=== PATIENT | male | born 1945 | race Caucasian/White ===

== ENCOUNTER 2019-09-16 19:45 | Emergency (ER) | payer MEDICARE, BC ==
[2019-09-16] MEDS ORDERED: Sodium Chloride 0.9% 10 ML Syringe FLUSH PRN ×2 (19:54→20:01)
[2019-09-16] MEDS ORDERED: Sodium Chloride 0.9% 1,000 ML IV SCH (20:00)
[2019-09-16] MEDS ORDERED: Iopamidol 612 MG/ML 100 ML Bottle IVPUSH ONE (20:01)
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
--- NOTE | 2019-09-16 20:43 | CT ---
CT cervical spine Technique: Multiple axial sections were obtained at the bottom of T1. Reconstructed sagittal and coronal images were reviewed. Comparison: No prior cervical spine imaging is available. Findings: Prominent degenerative change is noted within the apophyseal joints at C1 and C2 most severe on the left side. Diffuse disc space narrowing throughout the cervical spine is seen most severe at C6-7. Mild spondylolisthesis is noted at C3-4 and C4-5 compatible with degenerative apophyseal change. Severe left-sided neural foraminal stenosis is noted at C3-4 with moderate right-sided neural foraminal. Severe left-sided neural foraminal stenosis is noted at C4-5 with moderate right-sided neural foraminal stenosis at C4-5. Severe right-sided neural foraminal stenosis noted at C5-6. Fracture is noted noted within the lamina on the left side at C5. Fractures are seen within the lamina on both sides at C6. At C7 there is a fracture within the apophyseal joint involving the superior facet at C7 pedicle fracture noted on the left side at C7. There is slight subluxation of the apophyseal joint at C6-7 on the right side. No additional fracture is appreciated. Degenerative change is noted between the dens and anterior arch of C1. No definite additional fracture is seen. Impression: 1. Fractures at the 3 levels as described above. Diagnostic code #5 This report was dictated in MDT
--- NOTE | 2019-09-16 20:43 | CT ---
Head CT Technique: Multiple axial sections through the brain were obtained. Intravenous contrast was not utilized. Comparison: No prior intracranial imaging is available. Findings: Ventricles along with basal cisterns and sulci over the convexities are moderately prominent. Old lacunar infarct is noted within the right basal ganglia. No other abnormal parenchymal densities are seen. No evidence of intracranial hemorrhage. No midline shift or mass-effect is seen. Bone window settings were reviewed. Visualized mastoid sinuses and visualized paranasal sinuses show nothing acute. Partially visualized small retention cyst is noted within the right maxillary sinus. No acute calvarial finding is seen. Impression: 1. Generalized atrophy and old lacunar infarct. 2. Nothing acute is appreciated on noncontrast head CT exam. Diagnostic code #2 This report was dictated in MDT
[2019-09-16] MEDS ORDERED: Diphtheria,Pertussis(Acell),Tetanus Vaccine 0.5 ML Syringe IM ONE (20:54)
[2019-09-16] MEDS ORDERED: Lidocaine 1% 50 ML MDV INJECT ONE (20:54)
--- NOTE | 2019-09-16 20:56 | CT ---
CT chest Technique: Multiple axial sections through the chest were obtained. Intravenous contrast was utilized. Comparison: No prior chest imaging is available. Findings: Aorta shows no aneurysm. Mediastinum shows no abnormal densities. Mild coronary artery calcification is seen. No pericardial fluid is seen. Lungs show no acute parenchymal change. Minimal parenchymal density within the right lung base is seen most likely due to scarring. No pleural effusions or pneumothorax are seen. Bone window settings were reviewed which shows scattered degenerative change within the spine. Slightly displaced mid sternal fracture is noted. Cervical spine fractures are partially visualized as described on cervical spine CT. Degenerative change is noted within the thoracic spine. No other discrete fracture is appreciated on this exam. Impression: 1. Mid sternal fracture which is slightly displaced. 2. No other acute abnormality is appreciated on CT study of the chest. Diagnostic code #3 This report was dictated in MDT CT abdomen and pelvis Technique: Multiple axial sections were obtained from above the dome of the diaphragm inferiorly through the pubic symphysis. Intravenous contrast was utilized. No oral contrast was given. Comparison: No prior abdominal imaging is available. Findings: Liver contains no focal abnormality. Gallbladder shows multiple small calcified gallstones. Spleen appears within normal limits. Adrenal glands show no nodule. Cysts are noted within the kidneys. There ise an abnormality within the left kidney which is less specific and could represent a solid mass versus hemorrhagic cyst. This finding measures 4.6 cm. 2nd lesion is seen inferiorly within the left kidney which is also nonspecific for mass or hemorrhagic cyst measuring 4.0 cm. Aorta shows ectasia and atherosclerotic calcification without aneurysm. No retroperitoneal adenopathy or mesenteric abnormalities are seen. No pelvic mass or adenopathy is seen. Small fat-containing umbilical hernia is noted. Appendix is visualized and is normal in size. No free fluid or inflammatory change is appreciated. Bone window settings were reviewed which shows degenerative change within the lumbar spine. No definite acute fracture is appreciated within the visualized osseous structures. Impression: 1. Two abnormalities within the left kidney which are nonspecific for renal masses versus hemorrhagic cysts. MRI would be needed to differentiate if clinically needed. Ultrasound could otherwise be performed to allow for baseline for easier follow-up. This can be done non-emergently. 2. Other findings as noted above. Nothing acute is appreciated on CT study of the abdomen and pelvis. Diagnostic code #9 This report was dictated in MDT
[2019-09-16] MEDS ORDERED: Lactated Ringers 1,000 ML IV SCH (22:00)
--- NOTE | 2019-09-17 09:41 | CR ---
Chest: Portable view of the chest was obtained. Heart size is normal. Tortuous thoracic aorta is seen. Lungs are clear with no acute parenchymal change. Chronic rotator cuff tears are noted within both shoulders. Impression: 1. Findings as noted above. Nothing acute is appreciated. Diagnostic code #2 This report was dictated in MDT
== END 2019-09-16 22:11 ==
LOC: JD.ED 19:45
DX: S06.0X0A Concussion without loss of consciousness, initial encounter (principal); S12.600A Unspecified displaced fracture of seventh cervical vertebra, initial encounter for closed fracture; S12.400A Unspecified displaced fracture of fifth cervical vertebra, initial encounter for closed fracture; S12.500A Unspecified displaced fracture of sixth cervical vertebra, initial encounter for closed fracture; S22.22XA Fracture of body of sternum, initial encounter for closed fracture; S01.311A Laceration without foreign body of right ear, initial encounter; S41.111A Laceration without foreign body of right upper arm, initial encounter; Z23 Encounter for immunization; W17.89XA Other fall from one level to another, initial encounter
CPT/HCPCS: 36415; 70450; 71045; 71260; 72125; 74177; 80053; 85025; 85610; 90471; 90715; 99285; J7030; Q9967; 99284